=== PATIENT | male | born 1975 | race Caucasian/White ===

== ENCOUNTER 2016-12-01 10:52 | Emergency (ER) ==
[2016-12-01] MEDS ORDERED: NORCO-5 PO ONE (12:22)
--- NOTE | 2016-12-01 12:23 | PROVIDER DOCUMENTATION ---
HPI-Musculoskeletal Pain/Inj - GENERAL Chief Complaint: Rib Injury Stated Complaint: FALL/RIB PAIN Time Seen by Provider: 12/01/16 12:13 Source: patient - HX OF PRESENT ILLNESS-MUSKULOSKELTAL Nature of Presenting Problem: 41 y/o WM c/o fall 5 days ago. He was on a ladder about 4 feet in the air, when someone on the the top of a trailor hit another ladder which hit him in the right rib cage then he fell on that right side. Still having rib pain. Tried Motrin and pain creams, with mild relief. Denies sob or difficulty breathing. Denies hitting head or loc. denies pain in other areas at this time. Quality of Pain: reports: aching Severity in ED: moderate Onset/Duration: 5 days ago Timing: still present, constant Modifying Factors: improves with: analgesics (better), movement (worse with coughing and sneezing) Any recent injury?: Yes Locality of Occurance: Work Similar Symptoms Previously?: No Recently seen or treated by another doctor?: No Review of Systems - Adult - REVIEW OF SYSTEMS - ADULT Constitutional: reports: no symptoms reported. denies: chills, fever, fatique Eyes: reports: no symptoms reported. denies: blurred vision, double vision, eye pain Ears, Nose, Mouth & Throat: reports: no symptoms reported. denies: ear pain, nose pain, throat pain Cardiovascular: reports: no symptoms reported. denies: chest pain, palpitations Respiratory: reports: no symptoms reported. denies: cough, shortness of breath , wheezing Gastrointestinal: reports: no symptoms reported. denies: abdominal pain, diarrhea, nausea, vomiting Genitourinary: reports: no symptoms reported. denies: dysuria, discharge, frequency, incontinence Musculoskeletal: reports: see HPI, bone pain, muscle aches. denies: back pain, joint pain, neck pain Integumentary: reports: no symptoms reported. denies: rash Neurological: reports: no symptoms reported. denies: headache/migraines Psychiatric: reports: no symptoms reported Endocrine: reports: no symptoms reported Hematologic/Lymphatic: reports: no symptoms reported Allergic/Immunologic: reports: no symptoms reported All Other Systems: Reviewed and Negative Past History - Adult - PAST MEDICAL HISTORY-ADULT Review of Records: reports: Old Records Reviewed, Nursing Assessment Review, Medications Reviewed, Social history reviewed & non-contributory. Major Childhood Illnesses: reports: denies history Cardiovascular: reports: denies history Respiratory: reports: denies history Gastrointestinal: reports: denies history Genitourinary: reports: denies history Musculoskeletal: reports: denies history Neurological: reports: denies history Endocrine/Immune: reports: denies history Other Conditions: reports: denies history - IMMUNIZATION STATUS Childhood Immunizations: See Nurse Assessment Flu Vaccine: See Nurse Assessment - FAMILY HISTORY Family History: reviewed, not pertinent - SOCIAL HISTORY Smoking: less than 1 pack/day Provider spent 3-5 mins advising pt. on dangers of tobacco.: Discussed manners to quit use, and f/u contacts for add'l counseling. Substance Use: none/never Alcohol Use Frequency: never Physical Exam-Injury Related - Physical Exam-Injury Related General Appearance: appears well, alert, no apparent distress Eyes: PERRL/EOMI, pink conjunctivae Head, Ears, Nose, Mouth & Throat: normocephalic/atraumatic, moist mucous membranes, normal ENT inspection Neck: non-tender, full range of motion, supple, normal inspection. negative: C- spine tenderness Respiratory: chest non-tender, lungs clear, normal breath sounds, no pleuratic chest pain, no respiratory distress, no accessory muscle use. negative: respiratory distress, decreased breath sounds, accessory muscle use, crackles, rales, rhonchi, stridor, wheezing Cardiovascular: normal peripheral pulses, regular rate, rhythm, no edema, no gallop, no JVD, no murmur Chest/Breast: tenderness (chest wall pain over the anterior upper rib section) Lymphatic: no adenopathy Extremity: normal gait Integumentary: normal color, warm/dry Neurologic: grossly normal, no motor/sensory deficits Psych/Mental Status: AL, normal mood/affect, normal thought content, normal thought process, oriented x 3 - Glascow Coma Score Best Eye Response (Marleni): (4) open spontaneously Best Verbal Response (Marleni): (5) oriented Best Motor Response (Marleni): (6) obeys commands Progress - PLAN OF CARE/RESULTS Progress/Plan/Lab Results: Vital Signs Temp Pulse Resp BP Pulse Ox 12/01/16 10:57 98.4 F 80 18 117/85 100 Sulfa (Sulfonamide Antibiotics) Allergy (Verified 07/05/16 20:30) HIVES Clindamycin [Cleocin] 150 mg PO Q6HR #30 capsule 07/05/16 Hydrocodone/APAP 7.5 mg/325 mg [[place]-7.5] 1 each PO Q6H PRN PRN #14 tablet 07/13 Ondansetron [Zofran] 4 mg PO Q6H PRN PRN #20 tablet 07/05/16 Ciprofloxacin [Cipro] 250 mg PO BID #6 tablet 07/08/16 Hydrocodone/APAP 5 mg/325 mg [[place]-5] 1 each PO TID PRN #5 tablet 07/08/16 Orders Category Date Time Status RIBS UNILAT W/PA CHEST RIGHT [RAD] Stat Exams 12/01/16 12:14 Ordered Orders Category Date Time Status RIBS UNILAT W/PA CHEST RIGHT [RAD] Stat Exams 12/01/16 12:14 Taken Hydrocodone/APAP 5 mg/325 mg [[place]-5] Med 12/01/16 12:22 Discontinued 1 each PO NOW ONE - XRAY 1 XRAY: Right XRAY Study: Chest, Ribs Impression: Normal (NAD reviewed by Dr. Castillo) Departure - Departure Time of Disposition Order: 13:12 DIAGNOSIS: Contusion of rib on right side Qualifiers: Encounter type: initial encounter Qualified Code(s): S20.211A - Contusion of right front wall of thorax, initial encounter Disposition: HOME 01 Certified Medical Emergency: Emergent Condition: Stable Additional Instructions: Follow up with your primary care physician ED Follow Up Instructions: You have been treated by a care provider in the Emergency Department. These instructions are being provided to you so you can have an understanding of how to care for yourself upon discharge. Upon discharge from the Emergency Department, you are responsible for making arrangements for follow-up care by a physician of your choice. Take all prescribed medications as directed. Return to the Emergency Department immediately for any new or worsening symptoms. You may call the Physician Referral phone number at [phone] to obtain a list of Physicians who are taking new patients. Prescriptions: Cyclobenzaprine [Flexeril] 10 mg PO TID #20 tablet Acetaminophen with Codeine [Tylenol with Codeine #3] 1 each PO Q4H PRN PRN #14 tablet PRN Reason: Pain Attestation - Physician/ Mid-level Attestation Patient care was provided by Mid-level provider ([employer] GRADER HELPER/PA):: Yes Mid-level provider:: Gilma Oquendo Mid-level documentation review:: The Mid-level provider documentation, treatment plan and medical decision making was reviewed by the physician who agrees with all treatment and medical decision making by the MLP.
[2016-12-01 13:34] VITALS: BP 117/65
--- NOTE | 2016-12-01 14:00 | Diag Imaging Result Document ---
PROCEDURE NAME: RIBS UNILAT W/PA CHEST RIGHT - 12/01/2016 FRONTAL CHEST X-RAY AND FOUR VIEWS OF THE RIGHT-SIDED RIBS: COMPARISON: 05/09/2016. FINDINGS: The lungs are clear and the heart size is normal. The right-sided ribs are intact. IMPRESSION: No acute disease or change from prior.
== END 2016-12-01 13:37 | disposition home or self-care (01) ==
LOC: ED 10:52
DX: S20.211A Contusion of right front wall of thorax, initial encounter (principal); R07.81 Pleurodynia; R07.89 Other chest pain; M79.1 Myalgia; M89.8X9 Other specified disorders of bone, unspecified site; F17.210 Nicotine dependence, cigarettes, uncomplicated; Z71.6 Tobacco abuse counseling; W11.XXXA Fall on and from ladder, initial encounter
CPT/HCPCS: 71101; 99283